=== PATIENT | female | born 1950 | race Caucasian/White ===

== ENCOUNTER 2017-08-28 11:42 | Inpatient (IN) | payer MEDICARE, OTHER ==
[~2017-08-28] VITALS: Ht 165.1 cm; Wt 82.2 kg
[~2017-08-28 11:42] MED LIST: ADVAIR HFA 230M12 GM INH; BIAXIN 250MG T250 MG PO; CEFUROXIME250 MG PO; GUAIFENESIN/COD10 M1 PO; PREDNISONE 10 M10 MG PO; SPIRIVA INH; TESSALON PERLE100 MG PO; VENTOLIN HFA 1818 GM INH
[2017-08-28 11:44] VITALS: BP 136/57
[2017-08-28 12:29] LABS: ABSOLUTE EOSINOPHILS 0.2 thou/uL (0.0-0.7); ABSOLUTE LYMPHOCYTES 2.1 thou/uL (0.8-5.3); ABSOLUTE MONOCYTES 0.6 thou/uL (0.0-1.2); ABSOLUTE NEUTROPHILS 13.7 thou/uL (1.6-8.1); BASOPHILS 0.3 %; HEMATOCRIT 41.9 % (37.0-47.0); HEMOGLOBIN 13.8 gm/dL (12.0-15.0); LYMPHOCYTES 12.6 %; MCH 29.7 pg (26.0-34.0); MCV 89.9 fL (80.0-100.0); MONOCYTES 3.7 %; MPV 8.4 fl. (7.2-11.1); NUCLEATED RBCS 0 /100WBC; PLATELET COUNT* 197 thou/uL (150-400); POLYS 82.4 %; RBC 4.66 mil/uL (4.20-5.00); RDW-CV 13.6 % (10.5-14.5); WBC 16.6 thou/uL (4.0-11.0)
[2017-08-28 12:43] LABS: ANION GAP 7 mmol/L (7-16); BUN 9 mg/dL (7-18); CALCIUM 9.2 mg/dL (8.5-10.1); CHLORIDE 107 mmol/L (98-107); CO2 27 mmol/L (21-32); CREATININE 0.9 mg/dL (0.6-1.3); GLUCOSE 225 mg/dL (70-99); POTASSIUM 3.7 mmol/L (3.5-5.1); SODIUM 141 mmol/L (136-145)
[2017-08-28 12:50] LABS: ALBUMIN 3.7 g/dL (3.4-5.0); ALKALINE PHOSPHATASE 87 U/L (46-116); LIPASE 117 U/L (73-393); SGOT 17 U/L (15-37); SGPT 20 U/L (30-65); TOTAL BILIRUBIN 0.3 mg/dL (<0.1-1.0); TOTAL PROTEIN 6.2 g/dL (6.4-8.2); TROPONIN-I LEVEL <0.06 ng/mL (<0.06)
[2017-08-28 13:07] LABS: APTT 23.2 Seconds (25.0-31.3); INR 1.1; PROTIME 10.6 Seconds (9.20-11.50)
[2017-08-28 15:17] VITALS: BP 115/46
--- NOTE | 2017-08-28 16:25 | EKG ---
[place] [address] ELECTROCARDIOGRAM REPORT Name: JAE GIBBONS Room: [address] ADM IN .R.#: [id number] Admission: 08/28/17 Attend Phys: Susanna Mckenzie MD Discharge: Date of : 52 Report #: [id number] THIS REPORT FOR: //name// [facility] ED Test Date: 2017-08-28 Test Time: 11:51:21 Pat Name: JAE GIBBONS Department: Room: [facility] Gender: F Receivable Manager: Cari QUIÑONES : 1950 Requested By: Jonathan Carrero Order Number: [id number] MD: Milton Shay Measurements Intervals [place] Rate: 62 P: 55 [place]: 84 QRS: 79 QRSD: 94 T: 57 QT: 462 QTc: 470 Interpretive Statements Sinus rhythm Short [place] interval Baseline wander in lead(s) V2 Compared to ECG 04/03/2017 07:54:19 Sinus tachycardia no longer present Atrial abnormality no longer present ST (T wave) deviation no longer present Electronically Signed On 08-28-2017 16:25:04 CDT by Milton Shay [email or web address] <ELECTRONICALLY SIGNED> By: Milton Shay MD, [facility] 08/28/17 1625 1151 1151 Milton Shay MD, [facility] /EPI
[2017-08-28 17:08] LABS: URINE BILIRUBIN NEGATIVE (Negative); URINE BLOOD TRACE (Negative); URINE CLARITY CLEAR; URINE COLOR YELLOW; URINE GLUCOSE-RANDOM NEGATIVE (Negative); URINE KETONES NEGATIVE (Negative); URINE LEUKOCYTES-REFLEX NEGATIVE (Negative); URINE NITRITE-REFLEX NEGATIVE (Negative); URINE PROTEIN NEGATIVE (Negative); URINE UROBILINOGEN 0.2 E.U./dl (0.2-1.0)
--- NOTE | 2017-08-28 18:51 | NUR ---
PT UP FROM ER ALERT AND ORIENTED BUT VERY DROWSY UA COLLECTED NG TUBE CONT ON LOW INTERMITTENT SUCTION NPO MOUTH SWABS GIVEN TEMPERATURE IS NOW 97.2 AXILLARY AFTER BEAR HUGGER FENTANYL GIVEN X1 CALL LIGHT IN REACH SMEARS OF BM WHEN VOIDING
[2017-08-29] VITALS: BP 104/58
[2017-08-29 04:00] VITALS: BP 125/47
--- NOTE | 2017-08-29 04:49 | NUR ---
ASSUMED CARE OF PT AT 1930, NURSING ASSESSMENT COMPLETED AT START OF SHIFT. PT VOICED NO COCERNS AT START OF SHIFT. PT DENIES NAUSEA/VOMITTING THIS SHIFT. PRN FENTANYL ADMINISTERED FOR PAIN. SEE EMAR FOR DOCUMENTATION. PT CONTINUES ON LOW INTERMITTENT SUCTION TO RIGHT NARE NG. HOURLY ROUNDING COMPLETED, FALL PRECAUTIONS IN PLACE, CALL LIGHT WITHIN REACH. PT REMAINS NPO THIS SHIFT. PT TRACING SINUS RHYTHM THIS SHIFT ON GREY ROLL WORKER.
[2017-08-29 05:00] LABS: HEMATOCRIT 46.2 % (37.0-47.0); HEMOGLOBIN 15.6 gm/dL (12.0-15.0); MCH 30.2 pg (26.0-34.0); MCHC 33.7 g/dL (28.0-37.0); MCV 89.5 fL (80.0-100.0); MPV 8.9 fl. (7.2-11.1); RBC 5.16 mil/uL (4.20-5.00); RDW-CV 13.6 % (10.5-14.5); WBC 16.4 thou/uL (4.0-11.0)
[2017-08-29 05:33] LABS: CALCIUM 8.7 mg/dL (8.5-10.1); CREATININE 1.1 mg/dL (0.6-1.3); MAGNESIUM 1.8 mg/dL (1.8-2.4)
[2017-08-29 08:00] VITALS: BP 131/57
[2017-08-29 11:24] VITALS: BP 132/72
--- NOTE | 2017-08-29 12:49 | NUR ---
RECEIVED REPORT. ASSUMED CARE OF PT AT 0730. PT A&O X4, VSS, O2 SAT 95% ON 2L PER NC. SCIENTIFIC LINGUIST IN PLACE TRACING SR TO ST. AM ASSESSMENT AND VITALS COMPLETED CHARTED. IV PATENT AND INFUSING IVF. NG TUBE IN PLACE IN RIGHT NARES - 1200 OUTPUT OF NG TUBE SO FAR THIS SHIFT. PT ABLE TO HAVE ICE CHIPS NOW. PT WENT DOWN FOR ABDOMINAL SERIES XRAY THIS AM. SEE RESULTS. PT STATES SHE IS PASSING SOME GAS. BOWEL SOUNDS HYPOACTIVE. PT INFORMED OF PLAN OF CARE, PT COMMUNICATES UNDERSTANDING. LOW FALL RISK PRECAUTIONS IN PLACE. CALL LIGHT IS WITHIN REACH. HOURLY ROUNDING PERFORMED. WCTM.
[2017-08-29 15:29] VITALS: BP 132/63
--- NOTE | 2017-08-29 15:34 | NUR ---
CM ASSESSMENT: Pt is A&O. Resides at home with family. Independent with ADLs, continues to cook, clean and drive. Pt has home o2, a neb and a trilogy at home. No hx of HH. No hx of SNF. Pt states she's not feeling well today. CM to follow for dc needs.
--- NOTE | 2017-08-29 19:39 | NUR ---
PT REMAINS A&OX4. VSS. O2 SAT >90% ON 2L PER NC. PT EXPRESSING FRUSTRATION ABOUT NOT BEING ABLE TO DRINK WATER. PT ASKING FOR LARGE AMOUNTS OF ICE CHIPS SO THEY CAN MELT AND SHE CAN DRINK THE WATER. PT EDUCATED THAT SHE CAN ONLY HAVE ICE CHIPS, NOT WATER, AND THAT LARGE AMOUNTS OF WATER COULD BE DANGEROUS FOR HER BOWEL AT THIS TIME. PT COMMUNICATES UNDERSTANDING. NG TUBE REMAINS IN PLACE WITH STEADY, BROWN OUTPUT THROUGHOUT THE SHIFT. PT UP TO BATHROOM SEVERAL TIMES THIS SHIFT WITH ASSISTANCE TO VOID, NO ISSUES. NO STOOLS TODAY. BOWEL SOUNDS HYPOACTIVE. PT HAD FAMILY AT BEDSIDE THIS AFTERNOON. IV PATENT AND INFUSING IVF. OPERATIONS SECTION MANAGER REMAINS IN PLACE WITH NO CHANGES THIS SHIFT. PT REMAIN NPO EXCEPT ICE CHIPS. LOW FALL RISK PRECAUTIONS IN PLACE. CALL LIGHT IS WITHIN REACH. HOURLY ROUNDING PERFORMED. ALL NEEDS MET AT THIS TIME.
[2017-08-29 20:00] VITALS: BP 123/46
[2017-08-30] VITALS: BP 143/53
[2017-08-30 02:06] LABS: GLYCOHEMOGLOBIN (HGB A1C) 5.3 % (4.8-5.6)
[2017-08-30 04:05] VITALS: BP 105/41
--- NOTE | 2017-08-30 04:13 | NUR ---
ASSUMED CARE OF PT AT 1930, NURSING ASSESSMENT COMPLETED AT START OF SHIFT. PT VOICED NO CONCERNS AT START OF SHIFT. PT HAD LARGE, SOLID BM THIS SHIFT. SMALL AMOUNT OF BLOOD NOTED WITH BM. C/O ABDOMINAL PAIN THIS SHIFT, PRN PAIN MEDICATION ADMINISTERED. NG TUBE IN PLACE, LOW INT. SUCTION. HOURLY ROUNDING COMPLETED, CALL LIGHT WITHIN REACH. NO FALLS THIS SHIFT.
[2017-08-30 05:21] LABS: HEMATOCRIT 38.7 % (37.0-47.0); MCH 30.2 pg (26.0-34.0); MCHC 33.5 g/dL (28.0-37.0); MCV 90.2 fL (80.0-100.0); MPV 8.6 fl. (7.2-11.1); NUCLEATED RBCS 0 /100WBC; PLATELET COUNT* 140 thou/uL (150-400); RBC 4.29 mil/uL (4.20-5.00); RDW-CV 13.4 % (10.5-14.5); WBC 15.1 thou/uL (4.0-11.0)
[2017-08-30 05:30] LABS: ALBUMIN 2.5 g/dL (3.4-5.0); CALCIUM 8.5 mg/dL (8.5-10.1); CREATININE 0.9 mg/dL (0.6-1.3); POTASSIUM 4.3 mmol/L (3.5-5.1); TOTAL BILIRUBIN 0.6 mg/dL (<0.1-1.0); TOTAL PROTEIN 4.9 g/dL (6.4-8.2)
[2017-08-30 06:18] LABS: ABSOLUTE LYMPHOCYTES 1.7 thou/uL (0.8-5.3); ABSOLUTE MONOCYTES 0.8 thou/uL (0.0-1.2); ABSOLUTE NEUTROPHILS 12.7 thou/uL (1.6-8.1); ANISOCYTOSIS 1+; PLATELET ESTIMATE DECREASED; POIKILOCYTOSIS 1+
[2017-08-30 06:28] LABS: MAGNESIUM 1.9 mg/dL (1.8-2.4)
[2017-08-30 08:00] VITALS: BP 124/64
--- NOTE | 2017-08-30 10:10 | NUR ---
ASSUMED RESPONSIBILITY OF PT THIS AM PT IS ALERT AND ORIENTED X4 C/O PAIN AND RECEIVED FENTANYL WITH EFFECTIVENESS LARGE BM LAST NIGHT NG TUBE CLAMPED AND CLEAR LIQUIDS STARTED CONT WITH IV FLUIDS NS AT 100/H M/S STATUS NOW NSR ON THE MONITOR SOMETIMES TACHY ACHS NOT NEEDING INSULIN THUS FAR CALL LIGHT IN REACH SBA OR INDEPENDENT
[2017-08-30 11:18] VITALS: BP 136/57
--- NOTE | 2017-08-30 15:26 | NUR ---
PT GOING DOWN TO ORTHO SURG IN ROOM 116 REPORT GIVEN TO JARRETT PT STARTED HAVING EMESIS AGAIN DARK BROWN WITH A BLOOD TINGE LIKE BOWEL MOVEMENT BM IS TARRY BLACK AND STICKY TO THE BSC NG TUBE PUT BACK IN LOW INTERMITTENT SUCTION NURSE AWARE AND TO CALL SURGERY AGAIN
--- NOTE | 2017-08-30 15:30 | NUR ---
ASSUMED CARE OF PATIENT AT 1530. AGREE WITH PREVIOUS NURSES CHARTIN. NG TUBE CONNECTED TO INTERMITTENT SUCTION UPON ARRIVAL TO UNIT. IV IS PATENT AND INFUSING. VSS ON 2LO2. CALL LIGHT IS WITHIN REACH. NURSING WILL CONTINUE TO MONITOR.
[2017-08-30 16:00] VITALS: BP 144/40
--- NOTE | 2017-08-30 19:50 | NUR ---
ALERT AND ORIENTED X4. UP AD DIEUDONNE TO THE BSC. IV IS PATENT AND INFUSING. PAIN BEING MANAGED WITH IV PAIN MEDICATION. NG IN PLACE AND ON INTERMITTENT SUCTION. DENIES NAUSEA SINCE PLACING NG BACK ON INTERMITTENT SUCTION. VSS ON 2L O2. HOURLY ROUNDS HAVE BEEN MAINTAINED SINCE ARRIVING ON UNIT. CALL LIGHT IS WITHIN REACH. NURSING WILL CONTINUE TO MONITOR.
[2017-08-30 20:55] VITALS: BP 146/60
[2017-08-31 00:27] VITALS: BP 118/69
[2017-08-31 04:38] VITALS: BP 107/50
--- NOTE | 2017-08-31 05:18 | NUR ---
PATIENT REMAINS ALERT AND ORIENTED X4 THROUGHOUT SHIFT. VITAL SIGNS STABLE. OXYGEN STABLE ON 2 LITERS OF O2. PAIN MANAGED WITH IV MEDICATION. IV PATENT IN THE RIGHT WRIST INFUSING NORMAL SALINE AT 100 ML/HR. NG TUBE IN PLACE AND RUNNING ON LOW INTERMITENT SUCTION. MAINTAINED NPO STATUS. PATIENT RESTING COMFORTABLY THROUGHOUT THE NIGHT. TRANSFERRING AD DIEUDONNE TO THE [facility]. CALL LIGHT WITHIN REACH, WILL CALL FOR ASSISTANCE. NURSING WILL CONTINUE TO MONITOR.
[2017-08-31 05:46] LABS: ABSOLUTE MONOCYTES 1.2 thou/uL (0.0-1.2); ABSOLUTE NEUTROPHILS 4.3 thou/uL (1.6-8.1); BASOPHILS 0.2 %; EOSINOPHILS 0.4 %; HEMATOCRIT 33.9 % (37.0-47.0); HEMOGLOBIN 11.5 gm/dL (12.0-15.0); MCH 30.6 pg (26.0-34.0); MCHC 33.9 g/dL (28.0-37.0); MCV 90.3 fL (80.0-100.0); MONOCYTES 17.6 %; MPV 8.6 fl. (7.2-11.1); NUCLEATED RBCS 0 /100WBC; PLATELET COUNT* 124 thou/uL (150-400); POLYS 65.8 %; RBC 3.76 mil/uL (4.20-5.00); RDW-CV 13.3 % (10.5-14.5); WBC 6.5 thou/uL (4.0-11.0)
[2017-08-31 06:09] LABS: CREATININE 0.7 mg/dL (0.6-1.3); POTASSIUM 3.9 mmol/L (3.5-5.1)
[2017-08-31 08:15] VITALS: BP 120/53
[2017-08-31 15:01] VITALS: BP 138/55
[2017-08-31 17:21] VITALS: BP 138/55
--- NOTE | 2017-08-31 18:37 | NUR ---
PATIENT LEFT UNIT FOR SURGERY AT 1620. PRIOR TO LEAVING UNIT, PATIENT ALERT AND ORIENTED X4. UP AD DIEUDONNE TO THE BSC. IV PATENT. NO PAIN MEDICATION THIS SHIFT. PATIENT HAS BEEN VERY NAUSEOUS AND VOMITTING THROUGHOUT SHIFT RECIEVED IV NAUSEA MEDICATION X2. NG TUBE IN PLACE. VSS ON 2L O2. HOURLY ROUNDS HAVE BEEN MAINTAINED THROUGHOUT SHIFT. NURSING WILL CONTINUE TO MONITOR UPON ARRIVAL BACK TO UNIT.
[2017-08-31 21:10] VITALS: BP 122/49
[2017-09-01 04:34] LABS: ABSOLUTE LYMPHOCYTES 0.3 thou/uL (0.8-5.3); ABSOLUTE MONOCYTES 0.3 thou/uL (0.0-1.2); ABSOLUTE NEUTROPHILS 3.2 thou/uL (1.6-8.1); HEMATOCRIT 30.9 % (37.0-47.0); HEMOGLOBIN 10.4 gm/dL (12.0-15.0); LYMPHOCYTES 8.8 %; MCH 30.6 pg (26.0-34.0); MCHC 33.8 g/dL (28.0-37.0); MCV 90.5 fL (80.0-100.0); MONOCYTES 6.8 %; MPV 8.8 fl. (7.2-11.1); NUCLEATED RBCS 0 /100WBC; PLATELET COUNT* 111 thou/uL (150-400); POLYS 84.4 %; RBC 3.41 mil/uL (4.20-5.00); RDW-CV 13.3 % (10.5-14.5); WBC 3.8 thou/uL (4.0-11.0)
[2017-09-01 04:36] VITALS: BP 95/37
[2017-09-01 05:12] LABS: ALBUMIN 2.4 g/dL (3.4-5.0); CREATININE 0.7 mg/dL (0.6-1.3); POTASSIUM 3.7 mmol/L (3.5-5.1); TOTAL BILIRUBIN 0.3 mg/dL (<0.1-1.0); TOTAL PROTEIN 4.3 g/dL (6.4-8.2)
--- NOTE | 2017-09-01 08:31 | NUR ---
PATIENT RETURNED TO UNIT FROM PACU AT 2105. ALERT AND ORIENTED. NPO. NG TO LIS. DURING MY SHIFT. ORDERS TO CLAMP TO MORNING AND ADVANCED TO CLEARS. FLUIDS INFUSING PER ORDER. VITALS STABLE. LAP SITES X 3 C/D/I. DENIED THE NEED FOR PAIN MEDICATION DURING MY SHIFT. DENIES NAUSEA. CORMIER TO DEPENDENT DRAINAGE. HOURLY ROUNDS. NURSING WILL CONTINUE TO MONITOR.
[2017-09-01 09:00] VITALS: BP 103/47
[2017-09-01 17:01] VITALS: BP 105/49
[2017-09-01 20:00] VITALS: BP 103/47
--- NOTE | 2017-09-01 21:19 | NUR ---
I ASSUMED CARE OF THE PATIENT AT 0700. SHE IS ALERT AND ORIENTED X4. BED IS IN THE LOW LOCKED POSITION AND CALL LIGHT IS IN REACH. SHE IS ABLE TO TRANSITION TO THE COMMODE WITH STAND BY ASSIST. HOURLY ROUNDING WAS COMPLETED AND PATIENT NEEDS WERE MET. PAIN WAS DENIED. NG WAS CLAMPED THE FIRST HALF OF THE DAY AND REMOVED AT 1400. SHE IS TOLERATING WELL. PATIENT HAS BEGUN TO BLOAT AFTER CLEAR DIET WAS RESTARTED. WE ARE NOW BACKING OFF OF HER FLUIDS AND CONTINUOUS FLUIDS ARE TURNED DOWN. SHE WILL NEED A COLONOSCOPY IN 4-6 WEEKS. GENIA WAS D/C'D AT 1130 AND SHE WAS UNABLE TO URINATE UNTIL 194. ACCU CHECKS HAVE BEEN CHANGED TO ONCE A DAY IN THE AM. SHE HAS A NEW IV IN THE LEFT A/C WITH FLUIDS GOING. WILL CONTINUE TO MONITOR.
[2017-09-02 00:43] VITALS: BP 107/46
[2017-09-02 04:11] LABS: ABSOLUTE MONOCYTES 0.6 thou/uL (0.0-1.2); ABSOLUTE NEUTROPHILS 3.9 thou/uL (1.6-8.1); BASOPHILS 0.1 %; EOSINOPHILS 0.7 %; HEMATOCRIT 28.4 % (37.0-47.0); HEMOGLOBIN 9.4 gm/dL (12.0-15.0); LYMPHOCYTES 17.7 %; MCH 29.9 pg (26.0-34.0); MCHC 33.2 g/dL (28.0-37.0); MCV 90.2 fL (80.0-100.0); MONOCYTES 10.9 %; MPV 8.4 fl. (7.2-11.1); NUCLEATED RBCS 0 /100WBC; PLATELET COUNT* 129 thou/uL (150-400); POLYS 70.6 %; RBC 3.15 mil/uL (4.20-5.00); RDW-CV 13.3 % (10.5-14.5); WBC 5.5 thou/uL (4.0-11.0)
[2017-09-02 04:25] LABS: CALCIUM 7.5 mg/dL (8.5-10.1); CREATININE 0.7 mg/dL (0.6-1.3)
[2017-09-02 04:52] VITALS: BP 107/54
--- NOTE | 2017-09-02 05:39 | NUR ---
ALERT AND ORIENTED X4. UP AD DIEUDONNE IN ROOM. LAP SITES X3 ON ABDOMEN REMAINS INTACT. DENIED NEED FOR PAIN OR NAUSEA MEDICATION WHEN ASKED. ABDOMEN REMAINS DISTENDED. PATIENT STATED SHE HAS NOT PASSED ANY GAS YETONLY DOING SIPS OF WATER. HAS VOIDED X2 THIS SHIFT. CALL LIGHT WITHIN REACH.
[2017-09-02 08:00] VITALS: BP 104/46
[2017-09-02 15:37] VITALS: BP 107/66
--- NOTE | 2017-09-02 16:58 | NUR ---
ASSUMED CARE OF PATIENT AFTER MORNING REPORT. ALERT AND ORIENTED X4. ASSESSMENT COMPLETED AND CHARTED. VSS ON 3 LITERS 02. PATIENT HAS HAD N O COMPLAINTS OF PAIN OR NAUSEA THIS SHIFT. PATEINT ASKED FOR SOMETHING TO STIMULATE A BOWEL MOVEMENT. COLACE AND MIRALAX GIVEN WHICH PRODUCED SEVERAL SMALL, LOOSE STOOLS WITH SOME BLOOD IN THEM. PATIENT IS UP AD DIEUDONNE BUT CALLS OUT FOR NEEDS FREQUENTLY. IS AT BEDSIDE AT THIS TIME. HOURLY ROUNDS MAINTAINED. CALL LIGHT IS WITHIN REACH. NURSING WILL CONTINUE TO MONITOR.
[2017-09-02 21:00] VITALS: BP 119/47
[2017-09-02 21:05] LABS: HEMATOCRIT 31.2 % (37.0-47.0); HEMOGLOBIN 10.6 gm/dL (12.0-15.0)
--- NOTE | 2017-09-03 05:12 | NUR ---
ALERT AND ORIENTED X4. ABDOMEN SOFT AND DISTENDED. HAVING LOOSE REDDISH BROWN LIQUID STOOLS. LAB RESULTS DONE ORDERED. LAP SITES X3 ON ABD CLEAN DRY AND INTACT. CALL LIGHT WITHIN REACH.
[2017-09-03 05:48] VITALS: BP 124/74
[2017-09-03 06:52] LABS: HEMATOCRIT 31.9 % (37.0-47.0); HEMOGLOBIN 10.7 gm/dL (12.0-15.0); MCH 30.5 pg (26.0-34.0); MCHC 33.4 g/dL (28.0-37.0); MCV 91.2 fL (80.0-100.0); MPV 8.2 fl. (7.2-11.1); RBC 3.5 mil/uL (4.20-5.00); RDW-CV 13.4 % (10.5-14.5); WBC 5.5 thou/uL (4.0-11.0)
[2017-09-03 06:59] LABS: CALCIUM 7.8 mg/dL (8.5-10.1); CREATININE 0.7 mg/dL (0.6-1.3); MAGNESIUM 1.8 mg/dL (1.8-2.4)
[2017-09-03 07:01] LABS: POTASSIUM 4.4 mmol/L (3.5-5.1)
[2017-09-03 08:15] VITALS: BP 120/58
--- NOTE | 2017-09-03 14:23 | NUR ---
SW met with pt to follow up and introduce self and remind of SW role. Pt was resting with breathing machine. SW explained SW to continue to follow to assist with safe dc planning and any dc needs. Pt said okay and did not express any needs at this time.
--- NOTE | 2017-09-03 16:59 | NUR ---
ALERT AND ORIENTED X4. UP AD DIEUDONNE IN ROOM. IV IS PATENT AND INFUSING. DENIES NEED FOR PAIN MEDICATION. DENIES NAUSEA. TOLERATING FULL LIQUID DIET. ATTENDED PHYSICAL AND OCCUPATIONAL THERAPY THIS SHIFT. DRESSINGS ON C/D/I. VSS ON 3L O2. CALL LIGHT IS WITHIN REACH. NURSING WILL CONTINUE TO MONITOR.
[2017-09-03 20:15] VITALS: BP 132/54
[2017-09-04 05:31] LABS: ABSOLUTE EOSINOPHILS 0.2 thou/uL (0.0-0.7); ABSOLUTE LYMPHOCYTES 1.1 thou/uL (0.8-5.3); ABSOLUTE MONOCYTES 0.5 thou/uL (0.0-1.2); ABSOLUTE NEUTROPHILS 2.9 thou/uL (1.6-8.1); BASOPHILS 0.3 %; EOSINOPHILS 4.9 %; HEMATOCRIT 28.2 % (37.0-47.0); HEMOGLOBIN 9.7 gm/dL (12.0-15.0); LYMPHOCYTES 23.5 %; MCH 30.8 pg (26.0-34.0); MCHC 34.3 g/dL (28.0-37.0); MCV 89.8 fL (80.0-100.0); MONOCYTES 10.9 %; MPV 8.3 fl. (7.2-11.1); NUCLEATED RBCS 0 /100WBC; PLATELET COUNT* 148 thou/uL (150-400); POLYS 60.4 %; RBC 3.14 mil/uL (4.20-5.00); RDW-CV 13.6 % (10.5-14.5); WBC 4.8 thou/uL (4.0-11.0)
--- NOTE | 2017-09-04 05:32 | NUR ---
PT SLEPT MOST OF SHIFT. ASSESSMENT DOCUMENTED. MEDS GIVEN PER E-MAR. IV PATENT, ABX INFUSED. NO REPORTS OF PAIN OR NAUSEA. PT STATED SHE HAS NOT HAD ANY BLOODY STOOLS THIS SHIFT. WILL CONTINUE WITH PLAN OF CARE.
[2017-09-04 06:04] LABS: ALBUMIN 2.2 g/dL (3.4-5.0); CALCIUM 8.1 mg/dL (8.5-10.1); CREATININE 0.6 mg/dL (0.6-1.3); POTASSIUM 4.2 mmol/L (3.5-5.1); TOTAL BILIRUBIN 0.3 mg/dL (<0.1-1.0); TOTAL PROTEIN 4.4 g/dL (6.4-8.2)
[2017-09-04 07:40] VITALS: BP 119/48
--- NOTE | 2017-09-04 13:40 | NUR ---
Nutrition: Pt admitted with SBO, seen for LOS. Wt: 121#. Physician indicated "PCM" - defer DX. Spoke with RN today, who stated that pt seems to be doing well and no nutrition concerns at this time. H/o COPD, SIRS, UTI. On ABX. Labs: BG ok, alb 2.2, prealb 12.2. Tolerated Full liquids. RN will see how pt did on lunch today, which was Low Fiber diet. Appears at Mild risk.
[2017-09-04 16:00] VITALS: BP 122/59
--- NOTE | 2017-09-04 16:06 | NUR ---
PATIENT ADVANCED TO SOFT DIET, TOLERATING DIET THIS AFTERNOON. POSSIBLE DISCHARGE TOMORROW IF OK WITH SURGERY. SCHED ABX INFUSING ORDERED. UP AD DIEUDONNE AROUND ROOM. [address] PATIENT NOTED TO HAVE SMALL SOFT BM THIS SHIFT, NO BLOOD NOTED.
[2017-09-04 21:45] VITALS: BP 110/48
--- NOTE | 2017-09-05 06:02 | NUR ---
PT SLEPT MOST OF SHIFT. ASSESSMENT DOCUMENTED. MEDS GIVEN PER E-MAR. IV PATENT. NO REPORTS OF PAIN OR NAUSEA. WILL CONTINUE WITH PLAN OF CARE.
[2017-09-05 16:18] VITALS: BP 108/49
--- NOTE | 2017-09-05 20:02 | NUR ---
ASSUMED CARE THIS AM, LAURA DIET ADVANCE TO REG WELL, CONTINENT OF B/B, DENIES DISCOMFORT. UP AD DIEUDONNE, LAURA IV ABT TO LAC WITHOUT DIFF. LASIX ADMIN FOR LIMITED BREATH SOUNDS, POSITIVE RESULTS. EAGER FOR DISCHARGE, VSS, PROGRESSING WELL TOWARD GOALS, CONT POC.
[2017-09-05 20:30] VITALS: BP 126/47
--- NOTE | 2017-09-06 05:26 | NUR ---
PT SLEPT AT INTERVALS DURING THE NIGHT, UP AD DIEUDONNE, IV ANTIBIOTICS GIVEN, PLEASANT, DENIES PAIN OR NAUSEA, SLEPT WITH TRILOGY WITH 3L 02, CALL LIGHT IN REACH, WILL CONTINUE TO MONITOR
[2017-09-06 08:00] VITALS: BP 113/48
[2017-09-06 12:13] VITALS: BP 113/48
[2017-09-06] MEDS ORDERED: AUGMENTIN 875-1 EACH PO (12:28)
--- NOTE | 2017-09-06 13:00 | NUR ---
PATIENT DISCHARGED TO HOME. DISCHARGE PAPERS REVIEWED AND SIGNED. PRESCRIPTION GIVEN. IV REMOVED. PATSKYLARN DENIES ANY FURTHER NEEDS. PATIENT TAKEN BY WHEELCHAIR TO EXIT. LEFT WITH FRIEND.
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
--- NOTE | 2017-09-17 15:01 | CON ---
[address] [address] CONSULTATION Name: JAE GIBBONS Room: [address] IN M.R.#: [id number] Admission: 08/28/17 Attend Phys: Susanna Mckenzie MD Discharge: 09/06/17 Date of : 52 Report #: [id number] THIS REPORT FOR: //name// CC: Milton Mckenzie DATE OF SERVICE: 08/31/2017 ADDENDUM. The patient with a history of COPD and small-bowel obstruction, has presented to hospital 3 days ago. She has reported blood per rectum, and her hemoglobin has dropped from 13 to 11. She usually is followed by [facility]. We will obtain the records. In reference to her small-bowel obstruction, we are awaiting a small bowel follow through test that she will go to today. We will make further recommendation after reviewing her records and her imaging study results. <ELECTRONICALLY SIGNED> By: Raz Qureshi MD 09/17/17 1501 1244 [id number] Qureshi MD /nt
--- NOTE | 2017-10-03 09:47 | OP ---
[address] [address] OPERATIVE REPORT Name: JAE GIBBONS Room: [address] IN .R.#: [id number] Admission: 08/28/17 Attend Phys: Susanna Mckenzie MD Discharge: 09/06/17 Date of : 52 Report #: [id number] THIS REPORT FOR: //name// CC: Milton Mckenzie DICTATED BY: Kasandra Mishra DO DATE OF SERVICE: 08/31/2017 This is Kasandra Mishra DO, PGY5 dictating for Dr. Javi Kraft. PREOPERATIVE DIAGNOSIS: Small bowel obstruction. POSTOPERATIVE DIAGNOSIS: Small bowel obstruction secondary to adhesions. SURGEON: Kasandra Mishra DO, PGY5 SUPERVISING SURGEON: Javi Krfat DO BANK PRESIDENT: Nathan Severino DO, PGY1 PROCEDURE: Diagnostic laparoscopy with lysis of adhesions and release of small bowel obstruction. ANESTHESIA: General endotracheal. BLOOD LOSS: 20 mL. SPECIMENS: None. COMPLICATIONS: None. DISPOSITION: PACU to med/surg. OPERATIVE DETAILS: After obtaining proper informed consent, the patient was brought to the operating room and laid supine on the operating table. She was sedated and intubated under the benefit of general anesthesia and given preoperative antibiotics. Abdomen was prepped and draped in the usual sterile fashion and timeout was performed. Supraumbilical incision was made and dissection of subcutaneous tissue was carried out with the use of cautery to the level of the fascia. Superficial nicking incision was made in the fascia and this was grasped with 2 Ana clamps and elevated. Fascia was then carefully incised with the use of cautery and peritoneum was grasped with 2 hemostats and incised with Metzenbaum scissors. Enoiml-qj-txjig 0 [place] [address] OPERATIVE REPORT Name: JAE GIBBONS Marely Room: [address] IN [facility].#: [id number] Admission: 08/28/17 Attend Phys: Susanna Mckenzie MD Discharge: 09/06/17 Date of : 52 Report #: [id number] placed in the superior and inferior aspects of the fascia and Muriel trocar was placed in the abdomen and the abdomen was insufflated. A 4-quadrant inspection was undertaken, there were some omental adhesions to the anterior abdominal wall in the lower abdomen and there was quite a bit of edema of the small bowel and hyperemia. Suprapubic 5 mm trocar was placed under direct visualization and careful dissection of these anterior omental adhesions was carried out with the use of cautery until we cleared the left lower quadrant and a 5 mm trocar could be placed in the left lower quadrant. The patient was then placed head down and rolled slightly to the left. We turned our attention to the right lower quadrant. There were some omental adhesions that were loosely holding down small bowel, these were released. We then turned our attention to the cecum in an attempt to identify the terminal ileum. There was 1 tight omental band crossing the terminal ileum just proximal to the cecum and this was carefully incised with the use of cautery while elevating it off the bowel, which quickly released the terminal ileum and this was likely the source of her bowel obstruction. Small bowel was then run from the terminal ileum to the ligament of Treitz without any evidence of further adhesive disease. We then turned our attention to the stomach, it was quite distended and an NG tube was adjusted per anesthesia and connected to suction with good decompression of the stomach. The abdomen was then irrigated with saline and irrigation fluid was suctioned free. The trocars were removed under direct visualization and no evidence of bleeding. Abdomen was desufflated. A oeglph-ue-rgacn 0 Vicryl sutures were placed in the fascia of the supraumbilical incision with good approximation. Local infiltration of 0.5% Marcaine was injected into the fascia as well as subcutaneous tissue surrounding all incisions, totalling 20 mL. Skin was closed with 4-0 Monocryl followed by Mastisol, Steri-Strips, and sterile Tegaderm dressings. All counts were correct at the end of the case. Drapes were removed and the patient was awoken and extubated and brought to PACU in good condition for further recovery. Dr. Javi Kraft was present and scrubbed for the entirety of the procedure. <ELECTRONICALLY SIGNED> By: Javi Kraft DO 10/03/17 0947 50 15Adakimani Kraft DO /nt
== END 2017-09-06 13:00 | disposition home or self-care (01) | DRG 335 ==
LOC: M.ERS 11:42 → M.TBA-ER 13:49 → M.2W 13:49 → M.ORTHSURG 08-30 15:27 → M.3W 09-03 19:11
PROVIDERS: Family Medicine; Internal Medicine; Internal Medicine Gastroenterology; Surgery; ADMIT Internal Medicine
DX: K44.0 Diaphragmatic hernia with obstruction, without gangrene (principal); E43 Unspecified severe protein-calorie malnutrition; J18.9 Pneumonia, unspecified organism; J96.21 Acute and chronic respiratory failure with hypoxia; R65.10 Systemic inflammatory response syndrome (SIRS) of non-infectious origin without acute organ dysfunction; K92.1 Melena; J44.9 Chronic obstructive pulmonary disease, unspecified; D64.9 Anemia, unspecified; D69.6 Thrombocytopenia, unspecified; D72.829 Elevated white blood cell count, unspecified; K66.0 Peritoneal adhesions (postprocedural) (postinfection); R73.9 Hyperglycemia, unspecified; K21.0 Gastro-esophageal reflux disease with esophagitis; K59.00 Constipation, unspecified; E87.6 Hypokalemia; Z68.30 Body mass index [BMI] 30.0-30.9, adult; Z90.711 Acquired absence of uterus with remaining cervical stump; Z88.1 Allergy status to other antibiotic agents; Z87.891 Personal history of nicotine dependence

== ENCOUNTER → 2018-06-05 | Day surgery (SDC) | payer MEDICARE, OTHER ==
[~2018-06-05] MED LIST changes: +AUGMENTIN 875-1 EACH PO
--- NOTE | ~2018-06-05 | PROC ---
[address] [address] PROCEDURE REPORT Name: SHAIRENATO Room: [facility] M.R.#: [id number] Admission: 06/05/18 Attend Phys: Chai Senior MD Discharge: Date of : 52 Report #: [id number] THIS REPORT FOR: //name// For GI report, please see the Provation report in Perceptive 7. By: [facility] Staff [facility] /RUDY
[2018-06-05 09:50] LABS: HEMATOCRIT 43.6 % (37.0-47.0); HEMOGLOBIN 14.7 gm/dL (12.0-15.0); MCH 30.8 pg (26.0-34.0); MCHC 33.6 g/dL (28.0-37.0); MCV 91.8 fL (80.0-100.0); MPV 7.7 fl. (7.2-11.1); RBC 4.75 mil/uL (4.20-5.00); RDW-CV 13.7 % (10.5-14.5); WBC 4.1 thou/uL (4.0-11.0)
[2018-06-05 10:15] LABS: CALCIUM 9.6 mg/dL (8.5-10.1); CREATININE 0.8 mg/dL (0.6-1.3); POTASSIUM 3.9 mmol/L (3.5-5.1)
[2018-06-05 10:20] LABS: ALBUMIN 4.1 g/dL (3.4-5.0); TOTAL BILIRUBIN 0.7 mg/dL (<0.1-1.0); TOTAL PROTEIN 7.4 g/dL (6.4-8.2)
--- NOTE | 2018-06-06 15:07 | PATH ---
[facility] [address] [place] [address] PATHOLOGY RPT PROCEDURE Name: JAE GIBBONS LEE Room: [facility] M.R.#: [id number] Admission: 06/05/18 Date of : 52 Discharge: Report #: [id number] Path Case #: [id number] [facility] Accession Number: [id number] . 01 Material submitted: . PART A: ASCENDING COLON POLYP PART B: SIGMOID COLON POLYP . 01 Clinical history: . Screening, family HX colon cancer . 02 Diagnosis: A. Ascending colon polyp: - Hyperplastic polyp. . B. Sigmoid colon polyp: - Hyperplastic polyp. . (ZANE:at;06/06/2018) QTA/06/06/2018 . 02 Electronically signed: . Ramón Guevara MD, Pathologist NPI- [id number] . 01 Gross description: . A. Received in formalin labeled "Jae Gibbons, ascending colon polyp," is a single segment of nagy soft tissue measuring 0.7 cm in maximum dimension. The specimen is entirely submitted in cassette A1. . B. Received in formalin labeled "Jae Gibbons, sigmoid colon polyp," is a single segment of nagy soft tissue measuring 1.0 cm in maximum dimension. The specimen is entirely submitted in cassette B1. (TSD; 06/05/2018) TOB/TOB . 02 Pathologist provided ICD-10: K63.5 . 02 CPT . 684655, [id number] Specimen Comment: A courtesy copy of this report has been sent to Specimen Comment: [phone], . Specimen Comment: Report sent to / DR GONZALEZ Performed at: [address] [id number] MD Neftaly Alves MD Phone: [phone] [place] [address] PATHOLOGY RPT PROCEDURE Name: JAE GIBBONS Room: [facility]#: [id number] Admission: 06/05/18 Date of : 52 Discharge: Report #: [id number] Path Case #: [id number] Performed at: 02 [address] [place], [place] [id number] MD Ramón Guevara MD Phone: [phone]
== END | disposition home or self-care (01) ==
LOC: M.SUR 07:35
PROVIDERS: Internal Medicine Gastroenterology
DX: Z12.11 Encounter for screening for malignant neoplasm of colon (principal); Z86.010 Personal history of colon polyps; Z80.0 Family history of malignant neoplasm of digestive organs; K63.5 Polyp of colon; Z88.8 Allergy status to other drugs, medicaments and biological substances; J44.9 Chronic obstructive pulmonary disease, unspecified; F17.210 Nicotine dependence, cigarettes, uncomplicated; D64.9 Anemia, unspecified; Z90.710 Acquired absence of both cervix and uterus; Z98.890 Other specified postprocedural states; Z79.899 Other long term (current) drug therapy